=== PATIENT | male | born 1970 | race Caucasian/White ===

== ENCOUNTER → 2024-01-28 09:17 | Outpatient (REF) | payer BC, SELFPAY | LOC: HWRAD 09:17 | PROVIDERS: ATTENDING PHYSICIAN Nurse Practitioner Adult Health | DX: Z87.891 Personal history of nicotine dependence (principal) | CPT/HCPCS: 71271 ==

== ENCOUNTER → 2025-01-05 13:42 | Outpatient (REF) | payer BC, SELFPAY | LOC: DHSLP 13:42 | PROVIDERS: ATTENDING PHYSICIAN Registered Nurse; FAMILY PHYSICIAN Nurse Practitioner Adult Health | DX: G47.33 Obstructive sleep apnea (adult) (pediatric) (principal) | CPT/HCPCS: 95806 ==